=== PATIENT | female | born 1965 | race Two or more races ===

== ENCOUNTER → 2018-07-01 | Day surgery (SDC) | payer OTHER ==
--- NOTE | 2018-04-29 07:22 | Operative Note - PDOC ---
Operative Note Operative Note Pre-op Diagnosis: left shoulder impingment, rct Procedure: see op report Post-op Diagnosis: same as pre-op plus Operative Findings: consistent w/pre-op dx studies Anesthesia: general Specimen: none Complications: none Condition: stable Estimated Blood Loss: none Implant(s) used?: No Balta Victoria MD Apr 29, 2018 07:22
--- NOTE | 2018-04-29 07:22 | Pre-Procedure Note/Attestation ---
Pre-Procedure Note/Attestation Complete Prior to Procedure Planned Procedure: left Procedure Narrative: shoulder arthroscopy sad, possible rc repair Indications for Procedure Pre-Operative Diagnosis: left shoulder impingment, rct Attestation I attest that I discussed the nature of the procedure; its benefits; risks and complications; and alternatives (and the risks and benefits of such alternatives ), prior to the procedure, with the patient (or the patient's legal dealer compliance representative). I attest that, if there was a reasonable possibility of needing a blood transfusion, the patient (or the patient's legal dealer compliance representative) was given the [facility] standardized written summary, pursuant to the [place] Blood Safety Act ([place] Health and Safety Code # 1645, as amended). I attest that I re-evaluated the patient just prior to the surgery and that there has been no change in the patient's H&P, except as documented below: Balta Victoria MD Apr 29, 2018 07:22
[2018-07-01] VITALS (12 sets, daily range): BP systolic 111–140; BP diastolic 49–86
[~2018-07-01] VITALS: Ht 154.9 cm; Wt 74.8 kg
[~2018-07-01] MED LIST: Atropine Sulfate 0.4mg/ml inj IVP PRN; Bupivacaine w/Epi 0.5% 30ml Vial INJ ONE; Clindamycin 600mg/D5W 50ml IV ONE; D5 1/2NS 1,000 ML IV SCH; Dexamethasone 4mg/ml vial ONE; DiphenhydrAMINE 50mg/ml Inj IVP PRN; Duramorph PF 10mg/10ml amp IV ONE; EPINEPHrine 1mg/1ml Amp ONE; HYDROCHLOROTHIA25 MG ORAL; HYDROcodone/Acetamin 7.5/325 tab ORAL PRN; HYDROmorphone 1mg/ml Carpuject SUBQ PRN; Hydromorphone 0.5mg/0.5ml inj IVP PRN; Kenalog-40 1ml Vial ONE; Ketorolac 30mg Inj IV PRN; Ketorolac 30mg Inj ONE; LISINOPRIL20 MG ORAL; LORazepam Inj 2mg/ml 1ml IV PRN; LR 1000ml 1,000 ML IVLG SCH; LR 1000ml ONE; Lidocaine 1% MPF 10mg/ml 5ml ONE; Meperidine 50mg/ml Inj(FOR RIGORS ONLY) IVP PRN; Metoclopramide 10mg/2ml Inj IVP PRN; Midazolam 2mg/2ml Inj IVP PRN; Morphine Sulfate PF 10 ML ONE; NS Irrig 4000ml IRRIG ONE; Norco 5mg/325mg tab ORAL PRN; Propofol 200mg/20ml IV ONE; Ropivacaine 5mg/ml Vial 30ml INJ ONE; Sodium Chloride 10ml vial INJ ONE; Tylenol #3 tab (300mg/30mg) ORAL PRN; fentaNYL 100 mcg/2 mL IV PRN; oxyCODONE HCL/Acetaminophen 5/325mg ORAL PRN; oxyCONTIN 20mg tab ORAL ONE
--- NOTE | 2018-07-01 06:47 | Anethesia Preoperative Eval ---
Anesthesia Pre-op PMH/ROS General Date of Evaluation: Jul 01, 2018 Time of Evaluation: 07:21 Anesthesiologist: Bennett ASA Score: ASA 3 Mallampati Score Class I : Soft palate, uvula, fauces, pillars visible Class II: Soft palate, uvula, fauces visible Class III: Soft palate, base of uvula visible Class IV: Only hard plate visible Mallampati Classification: Class II Surgeon: Julien Diagnosis: L Shoulder Pain Surgical Procedure: L Shoulder Arthroscopy Anesthesia History: none Family History: no anesthesia problems Allergies: Coded Allergies: SULFA (SULFONAMIDE ANTIBIOTICS) (Verified Allergy, Intermediate, 07/01/18) SKIN RASH PENICILLINS (Verified Allergy, Unknown, throat closes up, 06/30/18) Uncoded Allergies: C IPRO (Allergy, Severe, 07/01/18) RASH Medications: see eMAR Patient NPO?: Yes Past Medical History Cardiovascular: Reports: HTN, other - HL Pulmonary: Reports: asthma Other: obesity - BMI 32 PSxH Narrative: MONIKA, Cholecystectomy Anesthesia Pre-op Phys. Exam Physician Exam Constitutional: NAD Neurologic: CN 2-12 intact Cardiovascular: RRR Respiratory: CTA Gastrointestinal: S/NT/ND Airway Exam Mallampati Score: Class II MO: full ROM: full Teeth: intact Anesthesia Pre-op A/P Risk Assessment & Plan Assessment: ASA 3 Plan: GA, SED GlideScope Go Status Change Before Surgery: No Pre-Antibiotics Dru Gram Ancef IV Given Within 1 Hr of Incision: Yes Time Given: 07:41 Marbin Guajardo MD Jul 01, 2018 06:47
--- NOTE | 2018-07-01 06:48 | Immediate Post-Op Evaluation ---
Immediate Post-Op Evalulation Immediate Post-Op Evalulation Procedure: L Shoulder Arthroscopy Date of Evaluation: Jul 01, 2018 Time of Evaluation: 09:19 IV Fluids: 400 LR Blood Products: 0 Estimated Blood Loss: 10 Urinary Output: 0 Blood Pressure Systolic: 140 Blood Pressure Diastolic: 65 Pulse Rate: 91 Respiratory Rate: 16 O2 Sat by Pulse Oximetry: 100 Temperature (Fahrenheit): 97 Pain Score (1-10): 2 Nausea: No Vomiting: No Complications 0 Patient Status: awake, reacts, patent, none Hydration Status: adequate Dru Gram Ancef IV Given Within 1 Hr of Incision: Yes Time Given: 07:41 Marbin Guajardo MD Jul 01, 2018 06:48
--- NOTE | 2018-07-01 06:49 | 48 Hour Post Anesthesia Eval ---
Post Anesthesia Evaluation Procedure: L Shoulder Arthroscopy Date of Evaluation: Jul 01, 2018 Time of Evaluation: 11:22 Blood Pressure Systolic: 138 0: 72 Pulse Rate: 89 Respiratory Rate: 18 Temperature (Fahrenheit): 98.2 O2 Sat by Pulse Oximetry: 99 Airway: patent Nausea: No Vomiting: No Pain Intensity: 2 Hydration Status: adequate Cardiopulmonary Status: Stable Mental Status/LOC: patient returned to baseline Follow-up Care/Observations: 0 Post-Anesthesia Complications: 0 Follow-up care needed: ready to discharge Marbin Guajrado MD Jul 01, 2018 06:49
--- NOTE | 2018-07-01 07:01 | Operative Note - PDOC ---
Operative Note Operative Note Pre-op Diagnosis: left shoulder impingment, rct Procedure: see op report Post-op Diagnosis: same as pre-op plus Operative Findings: consistent w/pre-op dx studies Anesthesia: general Specimen: none Complications: none Condition: stable Estimated Blood Loss: none Implant(s) used?: No Balta Victoria MD Jul 01, 2018 07:01
--- NOTE | 2018-07-01 07:01 | Pre-Procedure Note/Attestation ---
Pre-Procedure Note/Attestation Indications for Procedure Pre-Operative Diagnosis: left shoulder impingment, rct Attestation I attest that I discussed the nature of the procedure; its benefits; risks and complications; and alternatives (and the risks and benefits of such alternatives ), prior to the procedure, with the patient (or the patient's legal branch sales and service representative). I attest that, if there was a reasonable possibility of needing a blood transfusion, the patient (or the patient's legal branch sales and service representative) was given the [facility] standardized written summary, pursuant to the [place] Blood Safety Act ([place] Health and Safety Code # 1645, as amended). I attest that I re-evaluated the patient just prior to the surgery and that there has been no change in the patient's H&P, except as documented below: Balta Victoria MD Jul 01, 2018 07:01
--- NOTE | 2018-07-01 19:00 | Operative Note - Dictated ---
DATE OF OPERATION: 07/01/2018 PREOPERATIVE DIAGNOSES: 1. Left shoulder partial rotator cuff tear. 2. Left shoulder impingement syndrome/hypertrophic bursal tissue. POSTOPERATIVE DIAGNOSES: 1. Partial articular-sided rotator cuff tear. 2. Moderate rotator cuff tendinosis. 3. Impingement syndrome with hypertrophic bursal tissue. 4. Grade 1 superior labral tear. PROCEDURE: 1. Left shoulder diagnostic arthroscopic extensive intra-articular debridement. 2. Left shoulder subacromial decompression bursectomy and release of CA ligament. SURGEON: Balta Victoria M.D. ANESTHESIA: Interscalene with general. INDICATION FOR PROCEDURE: The patient is a pleasant female, who has had progressive left shoulder pain. She failed conservative treatment. She had an MRI, which showed partial rotator cuff tear. She elected to undergo left shoulder diagnostic arthroscopy, possible rotator cuff repair versus debridement with concurrent subacromial decompression bursectomy. Risks, limitations, expectations, and complications of procedure were discussed in detail. All questions were addressed. DESCRIPTION OF PROCEDURE: Informed consent was obtained. The patient was placed under general anesthesia and interscalene anesthetic. Left shoulder was prepped and draped in a sterile manner. Ancef was administered. Time-out was performed. A posterolateral stab incision was then made. Trocar was introduced into the shoulder joint. Of note, there was significant erythema in the rotator interval, was along the superior capsule. There was some fraying along the superior labrum. Biceps tendon appeared to be grossly intact. The undersurface of the supraspinatus had a partial rotator cuff tear. Medial working portal was established. Probe was then placed in the shoulder. The anterior labrum was probed and noted to be intact. No chondral damage. The superior labrum was intact. There was some fraying of the superior labral tissue consistent with a type 1 tear. There is no gross subluxation of the biceps tendon. At this point, a shaver was then placed to the shoulder. Debridement of the superior labrum was performed. Once that was done, the biceps tendon was again evaluated and noted to be intact. There was some tendinosis and fraying of the medial insertion of the subscap. The undersurface of the rotator cuff was evaluated. It seemed like it was less than 15%. Therefore, the camera was repositioned in the subacromial space. There was some significant hypertrophic bursal tissue in the acromial spur. Acromioplasty was started from lateral to medial and completed from posterior to anterior. Once that was done, the bursectomy posteriorly was completed. Once that was done, the entire bursal side of the rotator cuff including the supraspinatus and infraspinatus were well visualized. There is moderate tendinosis along the insertion of the supraspinatus and along the greater tuberosity, but no luis tears. It is that the decompression would be adequate to allow healing of this area of damage. At this point, the instruments were removed. Portal sites were closed using 3-0 Monocryl sutures. Steri-Strips and sterile dressings were applied. The patient was awoken and taken to recovery room with stable signs. ESTIMATED BLOOD LOSS: None. COMPLICATIONS: None. SPECIMENS: None. IMPLANTS: None. Balta Victoria M.D. DR: CORRINE JOB#: [id number] CC:
== END | disposition home or self-care (01) ==
LOC: SUR 06:27
DX: M75.42 Impingement syndrome of left shoulder (principal); M75.112 Incomplete rotator cuff tear or rupture of left shoulder, not specified as traumatic; S43.432A Superior glenoid labrum lesion of left shoulder, initial encounter; E78.5 Hyperlipidemia, unspecified; I10 Essential (primary) hypertension; J45.909 Unspecified asthma, uncomplicated; E66.9 Obesity, unspecified; Z68.32 Body mass index [BMI] 32.0-32.9, adult; J30.9 Allergic rhinitis, unspecified; Z90.49 Acquired absence of other specified parts of digestive tract; Z90.710 Acquired absence of both cervix and uterus; Z88.0 Allergy status to penicillin; Z88.2 Allergy status to sulfonamides; Z88.1 Allergy status to other antibiotic agents
CPT/HCPCS: 29823; 29826; J0171; J0690; J1100; J1885; J2250; J2274; J2405; J2704; J2795; J3301; 94003; 94150